=== PATIENT | male | born 1975 | race Caucasian/White ===

== ENCOUNTER → 2019-03-06 | Outpatient (CLI) | payer MEDICAID ==
--- NOTE | 2019-03-06 12:52 | REP ---
MRI lumbar spine: 03/06/2019. Indication: Cervical radiculopathy. Comparison: None. Technique: Multiplanar short and long TR sequences of the brain were obtained without IV Gadolinium. Findings: There is straightening of the cervical lordosis. No abnormal marrow signal is present. There is disc desiccation at C5/C6 and C6/C7. The craniocervical junction is unremarkable. No abnormal cord signal is present. C2/C3, C3/C4 and C4/C5: Unremarkable. C5/C6: There is a posterior central disc protrusion superimposed on a diffuse disc bulge with moderate compression of the spinal cord. There is no significant neural foraminal narrowing. C6/C7: Diffuse disc osteophyte complex is present with mild spinal canal and neural foraminal narrowing. C7/C1: Unremarkable. Impression: Posterior central disc herniation at C5/C6, slightly more prominent on the left as described. Electronically Signed by Juvenal Kothari DO 03/06/2019 12:43 P
== END ==
LOC: M PLARAD 08:13
PROVIDERS: ATTEND Orthopaedic Surgery
DX: M25.78 Osteophyte, vertebrae (principal); M50.222 Other cervical disc displacement at C5-C6 level; M47.892 Other spondylosis, cervical region

== ENCOUNTER → 2019-03-24 | Outpatient (CLI) | payer MEDICAID ==
--- NOTE | 2019-03-24 18:29 | REP ---
Scrotal sonography: History: Right testicular pain. The patient reports a lump at the right scrotum for years. Findings: High-resolution bilateral scrotal sonography is performed. No intratesticular mass lesion is seen on either side. Testicular Doppler flow is normal bilaterally. Resistive indices are measured by Doppler at 0.54 and 0.47 on the right and left respectively. Right testicular dimensions are 4.6 x 2.4 x 3.1 cm. Left testis measures 4.6 x 2.3 x 2.7 cm. There is a 1.0 cm cyst in the head of the epididymis corresponding to the palpable lump. No other finding. Impression: 1 cm right epididymal cyst. Otherwise negative scrotal sonography. Electronically Signed by Tirso Matthews MD 03/24/2019 06:56 P
== END ==
LOC: M RAD 14:23
PROVIDERS: ATTEND Nurse Practitioner Family
DX: N50.3 Cyst of epididymis (principal)

== ENCOUNTER → 2019-05-15 | Outpatient (REF) | payer OTHER, SELFPAY ==
[~2019-05-15] MED LIST: HYDR50TA70 PO; IBUP-1022 PO; PRAZ5CAP PO; TRAZ1TAB10 PO; VENL37.598 PO
[2019-05-15 13:38] LABS: BASO # 0.1 10^3/uL (0.0-0.2); BASO % 1.1 % (0.0-1.0); EOS # 0.2 10^3/uL (0.0-0.5); EOS % 2.2 % (0.0-3.0); HEMATOCRIT 50.3 % (42.0-52.0); HEMOGLOBIN 16.8 g/dl (13.5-17.5); LYMPH # 2.2 10^3/uL (1.5-5.0); LYMPH % 30.3 % (24.0-44.0); MEAN CORPUSCULAR HEMOGLOBIN 29.8 pg (27.0-33.0); MEAN CORPUSCULAR HGB CONC 33.4 g/dl (32.0-36.5); MEAN CORPUSCULAR VOLUME 89.2 fl (80.0-96.0); MONO # 0.5 10^3/uL (0.0-0.8); MONO % 6.9 % (0.0-5.0); NEUTROPHILS # 4.4 10^3/uL (1.5-8.5); NEUTROPHILS % 59.4 % (36.0-66.0); PLATELET COUNT, AUTOMATED 286 10^3/uL (150-450); RED BLOOD COUNT 5.64 10^6/uL (4.30-6.10); WHITE BLOOD COUNT 7.4 10^3/uL (4.0-10.0)
[2019-05-15 13:47] LABS: ALT/SGPT 22 U/L (12-78); BILIRUBIN,TOTAL 0.8 MG/DL (0.2-1.0); BLOOD UREA NITROGEN 14 MG/DL (7-18); CARBON DIOXIDE LEVEL 26 MEQ/L (21-32); CHLORIDE LEVEL 109 MEQ/L (98-107); CHOLESTEROL LEVEL 214 MG/DL (<200); CHOLESTEROL RISK RATIO 5.095 (<5); CREATININE FOR GFR 0.98 MG/DL (0.70-1.30); GLOMERULAR FILTRATION RATE > 60.0 (>60); GLUCOSE, FASTING 88 MG/DL (70-100); HDL CHOLESTEROL 42 MG/DL (>40); LDL CHOLESTEROL 154 MG/DL (<100); NON-HDL-C 172 MG/DL; SODIUM LEVEL 141 MEQ/L (136-145); THYROID STIMULATING HORMONE 0.971 uIU/ML (0.358-3.740); TOTAL PROTEIN 7.6 GM/DL (6.4-8.2); TRIGLYCERIDES LEVEL 88 MG/DL (<150)
[2019-05-15 13:48] LABS: FREE T4 1.12 NG/DL (0.76-1.46)
[2019-05-15 13:50] LABS: TOTAL 25(OH) VITAMIN D 16.7 NG/ML (30.0-100.0)
[2019-05-15 13:51] LABS: HEMOGLOBIN A1c 5.7 %
== END ==
LOC: M LAB REF 13:09
PROVIDERS: ATTEND Nurse Practitioner Family
DX: Z00.01 Encounter for general adult medical examination with abnormal findings (principal)

== ENCOUNTER → 2019-06-12 | Outpatient (CLI) | payer OTHER ==
[2019-06-12 15:00] LABS: BASO # 0.1 10^3/uL (0.0-0.2); BASO % 0.8 % (0.0-1.0); EOS # 0.2 10^3/uL (0.0-0.5); EOS % 1.5 % (0.0-3.0); HEMATOCRIT 47.9 % (42.0-52.0); HEMOGLOBIN 16.4 g/dl (13.5-17.5); LYMPH # 2.4 10^3/uL (1.5-5.0); LYMPH % 19.3 % (24.0-44.0); MEAN CORPUSCULAR HEMOGLOBIN 30.7 pg (27.0-33.0); MEAN CORPUSCULAR HGB CONC 34.2 g/dl (32.0-36.5); MEAN CORPUSCULAR VOLUME 89.7 fl (80.0-96.0); MONO # 0.9 10^3/uL (0.0-0.8); MONO % 7.3 % (0.0-5.0); NEUTROPHILS # 8.8 10^3/uL (1.5-8.5); NEUTROPHILS % 70.7 % (36.0-66.0); PLATELET COUNT, AUTOMATED 314 10^3/uL (150-450); RED BLOOD COUNT 5.34 10^6/uL (4.30-6.10); WHITE BLOOD COUNT 12.4 10^3/uL (4.0-10.0)
--- NOTE | 2019-06-12 15:13 | REP ---
PA and lateral chest: There are no comparisons. The lung hester are clear. The cardiac size is normal. The susy, mediastinum, and skeletal structures are unremarkable. Impression: Negative PA and lateral chest. Electronically Signed by Lance Horton MD 06/12/2019 03:05 P
[2019-06-12 15:14] LABS: INR 1.05; PROTHROMBIN TIME 13.4 SECONDS (11.8-14.0)
[2019-06-12 15:33] LABS: ALT/SGPT 20 U/L (12-78); BILIRUBIN,TOTAL 0.5 MG/DL (0.2-1.0); BLOOD UREA NITROGEN 11 MG/DL (7-18); CALCIUM LEVEL 9.3 MG/DL (8.5-10.1); CARBON DIOXIDE LEVEL 31 MEQ/L (21-32); CHLORIDE LEVEL 106 MEQ/L (98-107); CREATININE FOR GFR 0.87 MG/DL (0.70-1.30); GLOMERULAR FILTRATION RATE > 60.0 (>60); GLUCOSE, FASTING 104 MG/DL (70-100); POTASSIUM SERUM 3.9 MEQ/L (3.5-5.1); SODIUM LEVEL 141 MEQ/L (136-145); TOTAL PROTEIN 7.3 GM/DL (6.4-8.2)
== END ==
LOC: M LAB 13:49
PROVIDERS: ATTEND Nurse Practitioner Adult Health
DX: Z01.818 Encounter for other preprocedural examination (principal)

== ENCOUNTER 2019-06-17 09:50 | Inpatient (IN) | payer OTHER ==
--- NOTE | 2019-06-16 14:48 | HPE ---
DATE OF ADMISSION: 06/17/2019 HISTORY OF PRESENT ILLNESS: This is a pleasant 44-year-old male with continuing cervical stenosis, cervical myelopathy and left upper extremity radiculopathy. He has consented for anterior cervical decompression and fusion per Dr. Nacho Matt. Medical optimization was completed via video conference with nurse practitioner, Vero Cline. ALLERGIES: None known to drugs. MEDICATIONS: List includes: - hydroxyzine HCl 50 mg oral tablet - venlafaxine HCl ER 37.5 mg oral capsule extended release 24-hour - trazodone HCl 50 mg oral tablet - ibuprofen 600 mg oral tablet - prazosin HCl capsule MEDICAL PROBLEM: List includes: Cervical stenosis, cervical myelopathy and left upper extremity radiculopathy. Anxiety and depression. Essential hypertension. SOCIAL HISTORY: He quit smoking, but previous to that time was a heavy smoker. He denies ethanol intake or illicit drugs. SURGICAL HISTORY: Tonsillectomy. FAMILY HISTORY: Is positive for arthritis, hypertension, cancer, heart disease and diabetes. REVIEW OF SYSTEMS: Denies chest pain, shortness of breath, dyspnea on exertion, fever, chills, malaise, upper respiratory or urinary tract symptoms. His labs were reviewed. There was an elevation in his white count at 12.4. Neutrophil percentage was 70.7. Lymph percentage 19.3. [place] percentage 7.3. Neutrophil number 8.8. [place] number 0.9. Glucose was 104. Anion gap 4. Otherwise unremarkable. The patient notes that he had just been getting over a cold that was undocumented when his white count was elevated. His medical optimizing nurse practitioner makes note of this white count and recommends postoperative followup. The patient otherwise states feeling fine today. His chest x-ray was completed at [facility], service date 06/12/2019 showing negative PA and lateral views as read by Dr. Horton. PHYSICAL EXAMINATION: Height 66.5, weight 160.6 pounds, temperature 98.3, BP 145/63, respiration 15, pulse 63. This is a pleasant, well-developed, well-nourished male, in no acute distress. Alert and times three. Mood and affect are appropriate. He is ambulating without overt antalgic assistance or favoring, no ataxic gait. Normocephalic. Neck: Subtle stiffness otherwise supple. Negative jugular venous distention (JVD) or bruits. Chest: Rises symmetrically. Regular rate and rhythm. Lungs are clear to auscultation. Bowels sounds times four, soft, nontender. Skin is intact about the upper extremities and neck. IMPRESSION: 1. Cervical stenosis, cervical myelopathy and left upper extremity radiculopathy. 2. The patient consented for anterior cervical decompression and fusion. 3. Medical optimization was achieved per MAXINE Schulz. 4. On-call to the operating room (OR) 1 gram IV Kefzol in OR. 5. Sequential compression device (SCD) and thromboembolic deterrent stockings (TEDS) in OR. 6. The patient will arrive with [place] Cervical Collar. 7. Stat CBC preprocedure for Dr. Matt's viewing.
[~2019-06-17] VITALS: Ht 170.2 cm; Wt 68.5 kg
[~2019-06-17 09:50] MED LIST changes: +LIDOCAINE 1% MDV 20ML VIAL SQ PRN
[2019-06-17] MEDS ORDERED: THROMBIN SOLN 20,000 UNITS KIT As Ordered ONE (10:17)
[2019-06-17] MEDS ORDERED: BUPIVACAINE/EPIN 0.25% 30 ML VIAL As Ordered ONE (10:17)
[2019-06-17] MEDS ORDERED: LIDOCAINE W/EPINEPHRINE 1% 20ML VIAL As Ordered ONE (10:17)
[2019-06-17] MEDS ORDERED: BACITRACIN PWD 50,000 UNITS VIAL As Ordered ONE (10:18)
[2019-06-17] MEDS ORDERED: ceFAZolin 2 GM/D5W 50 ML IV BAG (J0690 PER 500MG) As Ordered ONE (10:36)
[2019-06-17] MEDS ORDERED: ceFAZolin SOD 2 GM in IV 1 EA IV ONE (10:45)
[2019-06-17] MEDS ORDERED: GABAPENTIN 300 MG CAP PO ONE (10:45)
[2019-06-17] MEDS ORDERED: PERCOCET 5MG/325MG TAB PO ONE (10:45)
[2019-06-17] MEDS ORDERED: fentaNYL 250 MCG/5 ML INJECTION (J3010) As Ordered ONE (10:54)
[2019-06-17] MEDS ORDERED: LIDOCAINE 2% INJ 100 MG/5 ML SDV (FOR ANES.) As Ordered ONE ×2 (10:54→15:56)
[2019-06-17] MEDS ORDERED: propofoL 200 MG/20 ML VIAL As Ordered ONE (10:54)
[2019-06-17] MEDS ORDERED: ONDANSETRON 4MG/2ML VIAL (J2405) As Ordered ONE (10:54)
[2019-06-17] MEDS ORDERED: ROCURONIUM BROMIDE 50 MG/5 ML VIAL As Ordered ONE ×3 (10:54→14:42)
[2019-06-17] MEDS ORDERED: dexameTHASONE 4 MG/ML 1ML VIAL (J1100) As Ordered ONE (10:54)
[2019-06-17] MEDS ORDERED: MIDAZOLAM INJ 2 MG/2 ML VIAL (J2250) As Ordered ONE (10:55)
[2019-06-17] MEDS ORDERED: LR 1,000 ML IV ONE (12:00)
[2019-06-17] MEDS ORDERED: ALBUTEROL 6.7GM INHALER **FOR ANES. CART/OMNICELL ONLY As Ordered ONE (12:41)
[2019-06-17] MEDS ORDERED: KETAMINE HCL 200 MG/20 ML VIAL As Ordered ONE (12:53)
[2019-06-17] MEDS ORDERED: HYDROmorphone HCL 2 MG/ML 1ML VIAL (J1170) As Ordered ONE (14:10)
[2019-06-17] MEDS ORDERED: ACETAMINOPHEN 1000MG 100ML IV BTL (OFIRMEV) (J0131 PER 10MG) As Ordered ONE (15:56)
[2019-06-17] MEDS ORDERED: SUGAMMADEX SODIUM 500 MG/5 ML VIAL (BRIDION) As Ordered ONE (16:03)
[2019-06-17] MEDS ORDERED: ePHEDrine SULFATE 25 MG/5 ML(5MG/ML) SYRINGE As Ordered ONE (16:25)
[2019-06-17] MEDS ORDERED: NALOXONE INJ 0.4 MG/1 ML VIAL (J2310) As Ordered ONE (16:45)
[2019-06-17] MEDS ORDERED: HYDROMORPHONE HCL 0.5 MG/ 0.5 ML SYRINGE (J1170 PER 1) IV PRN (17:00)
[2019-06-17] MEDS ORDERED: oxyCODONE 5MG TAB PO PRN (17:00)
[2019-06-17] MEDS ORDERED: PERCOCET 5MG/325MG TAB PO PRN (17:00)
[2019-06-17] MEDS ORDERED: ceFAZolin SOD 2 GM in IV 1 EA IV SCH (17:00)
[2019-06-17] MEDS ORDERED: LR 1,000 ML IV SCH (17:00)
[2019-06-17] MEDS ORDERED: fentaNYL 100 MCG/2 ML INJECTION (J3010) IV PRN (17:00)
[2019-06-17] MEDS ORDERED: PROMETHAZINE INJ 25 MG/ML VIAL (J2550) IV PRN (17:00)
[2019-06-17] MEDS ORDERED: ONDANSETRON 4MG/2ML VIAL (J2405) IV PRN (17:00)
[2019-06-17] MEDS ORDERED: ACETAMINOPHEN TAB 650MG DOSE (2X325MG) PO PRN (17:00)
[2019-06-17] MEDS: D5W/LR 1,000 ML IV SCH (17:00)
--- NOTE | 2019-06-17 17:14 | REP ---
Cervical spine: Limited study, two views. History: Intraprocedural imaging. Right cervical discectomy. Findings: There are two cross-table lateral portably obtained intraoperative radiographs. These are time stamped 01:57 p.m. and 03:51 p.m. The 01:57 p.m. radiograph demonstrates an orotracheal tube in place. An operative probe is seen at the anterior margin of the C5-6 disc level. The 03:51 p.m. film demonstrates ventral discectomy and fusion plating across the C5-6 and C6-7 disc levels, normal alignment. Electronically Signed by Tirso Matthews MD 06/17/2019 07:31 P
[2019-06-17 18:45] VITALS: BP 142/81
[2019-06-17 20:05] VITALS: BP 132/83
[2019-06-17] MEDS: PERCOCET 5MG/325MG TAB PO PRN (20:52)
[2019-06-17] MEDS: PRAZOSIN 1 MG CAP PO SCH (20:58)
[2019-06-17] MEDS: ceFAZolin SOD 2 GM in IV 1 EA IV SCH (20:59)
[2019-06-17] MEDS ORDERED: traZODone 50 MG TAB PO SCH (21:00)
[2019-06-17] MEDS: CHLORASEPTIC SPRAY MT PRN (21:03)
[2019-06-17 21:13] VITALS: BP 130/83
[2019-06-17 22:30] VITALS: BP 132/84
[2019-06-18] MEDS: PERCOCET 5MG/325MG TAB PO PRN ×3 (01:46→09:33)
[2019-06-18] MEDS: ceFAZolin SOD 2 GM in IV 1 EA IV SCH (01:50)
[2019-06-18 02:45] VITALS: BP 129/82
[2019-06-18] MEDS: D5W/LR 1,000 ML IV SCH (05:30)
[2019-06-18 05:48] VITALS: BP 132/81
[2019-06-18] MEDS: CHLORASEPTIC SPRAY MT PRN (05:50)
[2019-06-18] MEDS ORDERED: PERC5TAB12 PO (05:56)
[2019-06-18 09:00] VITALS: BP 132/81
[2019-06-18] MEDS: PRAZOSIN 1 MG CAP PO SCH (09:00)
[2019-06-18] MEDS ORDERED: VENLAFAXINE **XR** 37.5 MG CAPSULE PO SCH (09:00)
--- NOTE | 2019-06-18 13:59 | RO ---
DATE OF SURGERY: 06/17/2019 PREOPERATIVE DIAGNOSIS: Cervical spinal stenosis with myelopathy. POSTOPERATIVE DIAGNOSIS: Cervical spinal stenosis with myelopathy. PROCEDURE PERFORMED: Anterior cervical decompression and fusion at C5-6 and anterior cervical decompression and fusion at C6-7 using structural allograft for spine surgery and anterior cervical instrumentation. SURGEON: Nacho Matt MD COMPENSATION SUPERVISOR: DINA Queen ANESTHESIA: General. Estimated blood loss less than 40 mL, replaced with crystalloid. No complications. INDICATIONS: Clinical findings consistent with bilateral radicular complaints as well as cervical myelopathy, MRI evidence of spinal stenosis with cord signal change. Consent reviewed in detail including a ramona discussion of the pathology involved, procedure proposed, alternatives including doing nothing and risks including but not limited to pain, failure, infection, bleeding, blood loss, paralysis, need for more surgery, and other issues. The patient also understands that he needs remain nicotine free as has recently quit smoking and the nicotine use would increase the risk of failure of this surgery. The patient agrees to proceed with surgery. Components used included DePuy [place] plate 30 mm, a 5 x 7 graft at C6-C7 and a 4 x 6 graft at C5-6, 14 mm screws. OPERATIVE COURSE: Identified in holding area. Site side verified. Brought to the operating room. Once anesthesia was administered, head halter traction 7 pounds was applied. Shoulders were taped at the side. Bump between the shoulder placed. Once I and the trend investigator were comfortable with the patient's positioning he was then sterilely prepped and draped in the usual fashion for exposure of the cervical spine for anterior cervical decompression and fusion right-sided approach. Next, Mr. Morales stood on the left, I stood on the right. I utilized loupe magnification as well as a headlamp. The incision was outlined with a marking pen, infiltrated with 1% lidocaine with epinephrine. I made the incision using a #10 blade knife developed down through skin and subcuticular tissues to the platysma. Platysma was exposed, elevated and divided using bipolar cautery as well as tenotomy scissors. This allowed exposure to the sternocleidomastoid and the omohyoid was observed crossing inferiorly. Next, large branch of the external jugular was appreciated in the interval between the sternocleidomastoid and medial structures. This was elevated, exposed and ligated and then transected to allow exposure. Sternocleidomastoid was divided for the procedure. Using bipolar cautery and tenotomy scissors dissection continued. Carotid sheath was identified, protected laterally. Dissection continued medial to the carotid sheath down to the prevertebral fascia. Prevertebral fascia was then elevated off of the longus colli to the patient's right side and the disc osteophyte complexes were exposed. Bayonet spinal needle was placed and a cross-table lateral was taken to verify our levels. Next, once this was accomplished, I elevated the medial border of the longus colli using Bovie cautery bilaterally. We placed distraction pins across C5-6. Rodriguez-Tao's were utilized to remove anterior osteophyte complex. #11 blade was utilized to open annulus. Two turns were utilized to remove disc material. Curettes were utilized to clear cartilaginous endplate. We distracted using a distraction device and I utilized the oval bur to square the vertebral body endplates and uncinate processes and exposed the posterior longitudinal ligament (PLL). PLL was elevated using curved curettes and I removed PLL using curved curettes as well as the #1 and #2 Kerrison exposing the thecal sac. We did appreciate significant impingement on the thecal sac, especially at C5-6. Next, once the thecal sac was significantly decompressed at C5-6 and exposed we utilized rasps. We then sounded for a size 5 x 7 graft and installed the size 5 x 7 graft at C5-6. Next, the graft was tamped into place. Irrigation had been accomplished. Next, superior distraction pin removed. Pinhole plugged with wax. Oval bur was utilized to further contour the vertebral body anterior aspect for plating. Next, we subluxed retractors exposing C6-7. Distraction pin was placed in C7. We distracted across C6-7. We moved the Shadow-Line retractor into place. I removed the anterior osteophyte using Rodriguez-Tao as well as the oval bur. Further opened the annulus using #11 blade. Removed disc material with pituitaries, curettes and Kerrison. Next, once this was accomplished curettes were utilized to remove cartilaginous endplate. Oval bur was utilized to further square endplate and remove uncinate processes. Posterior longitudinal ligament elevated with curved curettes and removed using #1 and #2 Kerrison's. Thecal sac exposed. Rasps were utilized at C6-7. Sound was utilized predicting a size 4 x 6 graft. The 4 x 6 graft was obtained, soaked in bacitracin solution and implanted, tamped into place. Next, distraction pins were removed. Holes plugged with wax. Oval bur was utilized to further contour anterior vertebral body endplates. Next, we inspected for active bleeding. None observed and irrigation again accomplished. The size 30 mm plate was obtained, applied to the anterior vertebral column, fit appropriately. We drilled the plate and put the appropriate 14 mm screws at C5, C6, and C7. The plate was locked. Irrigation again accomplished. No active bleeding appreciated. Retractors were removed. Platysma was closed with interrupted stitch, deep dermis with interrupted stitch and Dermabond. Cross-table lateral was taken verifying appropriate plate and graft placement. Next, the patient was then extubated, moved to the recovery room in good condition. We placed a [place] collar. The patient is moving all four extremities. Mr. Morales participated in the entirety case in the capacity of first aid officer utilizing assisting with retractors, suction and positioning of the retractor devices.
--- NOTE | 2019-06-19 09:49 | DSES ---
DATE OF ADMISSION: 06/17/2019 DATE OF DISCHARGE: 06/18/2019 ATTENDING PHYSICIAN: Dr. Nacho Matt ADMISSION DIAGNOSIS: Cervical stenosis. OTHER DIAGNOSES: 1. Anxiety and depression. 2. Essential hypertension. DISCHARGE DIAGNOSIS: Cervical stenosis with myelopathy status post anterior cervical decompression and fusion at C5-6 and C6-7. OPERATION PERFORMED: Anterior cervical decompression and fusion at C5-6 and C6-7. HISTORY: This is a 44-year-old male patient with cervical stenosis and myelopathy with left upper extremity radiculopathy who failed to improve with conservative management and was admitted for elective cervical decompression and fusion at C5-6 and C6-7. HOSPITAL COURSE: The patient was admitted on the day of surgery and underwent the above procedure which was uneventful. He did well in the postoperative period and hospital course was without complications. His pain was controlled on the day of discharge. He will resume his preoperative medications and diet along with oral pain medications for pain control. He was given instructions to include, but not limited to wound monitoring and activity limitations. He will followup in our office in 10-14 days for surgical followup. Please refer to the medical record for further details.
== END 2019-06-18 09:30 | disposition home or self-care (01) | DRG 321 ==
LOC: M OR 10:01 → ENRESERVTM 18:10 → ENRESERVDT 18:10 → M MS5PR 18:30
PROVIDERS: ADMIT Orthopaedic Surgery; ATTEND Orthopaedic Surgery
PROC: 00NW0ZZ Release Cervical Spinal Cord, Open Approach (ICD-10-PCS; 2019-06-17)
PROC: 0RG20K0 Fusion of 2 or more Cervical Vertebral Joints with Nonautologous Tissue Substitute, Anterior Approach, Anterior Column, Open Approach (ICD-10-PCS; principal; 2019-06-17 11:30)
DX: M48.02 Spinal stenosis, cervical region (principal); I10 Essential (primary) hypertension; F41.9 Anxiety disorder, unspecified; F32.9 Major depressive disorder, single episode, unspecified; M50.022 Cervical disc disorder at C5-C6 level with myelopathy; M50.023 Cervical disc disorder at C6-C7 level with myelopathy; M50.122 Cervical disc disorder at C5-C6 level with radiculopathy; M50.123 Cervical disc disorder at C6-C7 level with radiculopathy; Z79.899 Other long term (current) drug therapy; Z87.891 Personal history of nicotine dependence

== ENCOUNTER 2020-05-05 17:40 | Emergency (ER) | payer OTHER ==
[~2020-05-05] VITALS: Ht 170.2 cm; Wt 65.9 kg
[~2020-05-05 17:40] MED LIST changes: -LIDOCAINE 1% MDV 20ML VIAL SQ PRN; +PERC5TAB12 PO
[2020-05-05] MEDS ORDERED: GABA-843 (17:53)
[2020-05-05] MEDS ORDERED: QUET200T2 (17:53)
[2020-05-05] MEDS ORDERED: NS 1,000 ML IV ONE (18:15)
[2020-05-05] MEDS ORDERED: ONDANSETRON 4MG/2ML VIAL IV ONE (18:30)
[2020-05-05 18:38] LABS: BASO # 0.1 10^3/uL (0.0-0.2); BASO % 0.7 % (0.0-1.0); EOS # 0.1 10^3/uL (0.0-0.5); EOS % 0.7 % (0.0-3.0); HEMATOCRIT 49.2 % (42.0-52.0); HEMOGLOBIN 17.4 g/dl (13.5-17.5); LYMPH # 2.5 10^3/uL (1.5-5.0); LYMPH % 22.9 % (24.0-44.0); MEAN CORPUSCULAR HEMOGLOBIN 29.4 pg (27.0-33.0); MEAN CORPUSCULAR HGB CONC 35.4 g/dl (32.0-36.5); MEAN CORPUSCULAR VOLUME 83.2 fl (80.0-96.0); MONO % 9.1 % (0.0-5.0); NEUTROPHILS # 7.1 10^3/uL (1.5-8.5); NEUTROPHILS % 66.1 % (36.0-66.0); PLATELET COUNT, AUTOMATED 326 10^3/uL (150-450); RED BLOOD COUNT 5.91 10^6/uL (4.30-6.10); WHITE BLOOD COUNT 10.7 10^3/uL (4.0-10.0)
[2020-05-05 19:08] LABS: ALBUMIN 4.1 GM/DL (3.2-5.2); ALT/SGPT 26 U/L (12-78); BILIRUBIN,DIRECT 0.3 MG/DL (0.0-0.2); BILIRUBIN,TOTAL 1.1 MG/DL (0.2-1.0); BLOOD UREA NITROGEN 22 MG/DL (7-18); CALCIUM LEVEL 9.6 MG/DL (8.5-10.1); CARBON DIOXIDE LEVEL 23 MEQ/L (21-32); CHLORIDE LEVEL 106 MEQ/L (98-107); CREATININE FOR GFR 0.96 MG/DL (0.70-1.30); GLOMERULAR FILTRATION RATE > 60.0 (>60); GLUCOSE, FASTING 94 MG/DL (70-100); LIPASE 69 U/L (73-393); POTASSIUM SERUM 3.6 MEQ/L (3.5-5.1); SODIUM LEVEL 138 MEQ/L (136-145)
[2020-05-05 19:47] VITALS: BP 130/76
[2020-05-05] MEDS ORDERED: ONDANSETRON 4 MG ORAL DISINTEGRATING TAB PO ONE (20:00)
== END 2020-05-05 20:21 | disposition home or self-care (01) ==
LOC: M ED 17:40
DX: E86.0 Dehydration (principal); A05.9 Bacterial foodborne intoxication, unspecified; Z79.899 Other long term (current) drug therapy; F17.210 Nicotine dependence, cigarettes, uncomplicated
CPT/HCPCS: 80048; 80076; 83690; 85025; 96374; 99284; J2405; Q0162

== ENCOUNTER 2020-05-16 13:45 | Emergency (ER) | payer OTHER ==
[~2020-05-16] VITALS: Ht 170.2 cm; Wt 68.2 kg
[~2020-05-16 13:45] MED LIST changes: +GABA-843; +QUET200T2
[2020-05-16] MEDS ORDERED: NS 1,000 ML IV ONE (15:00)
[2020-05-16] MEDS ORDERED: ONDANSETRON 4MG/2ML VIAL IV ONE (15:15)
[2020-05-16 15:38] LABS: BASO # 0.1 10^3/uL (0.0-0.2); BASO % 0.4 % (0.0-1.0); EOS % 0.1 % (0.0-3.0); HEMATOCRIT 44.7 % (42.0-52.0); HEMOGLOBIN 15.3 g/dl (13.5-17.5); LYMPH # 0.9 10^3/uL (1.5-5.0); LYMPH % 7.2 % (24.0-44.0); MEAN CORPUSCULAR HEMOGLOBIN 29.9 pg (27.0-33.0); MEAN CORPUSCULAR HGB CONC 34.2 g/dl (32.0-36.5); MEAN CORPUSCULAR VOLUME 87.5 fl (80.0-96.0); MONO # 0.4 10^3/uL (0.0-0.8); MONO % 2.8 % (0.0-5.0); NEUTROPHILS # 11.3 10^3/uL (1.5-8.5); PLATELET COUNT, AUTOMATED 305 10^3/uL (150-450); RED BLOOD COUNT 5.11 10^6/uL (4.30-6.10); WHITE BLOOD COUNT 12.7 10^3/uL (4.0-10.0)
[2020-05-16 15:58] LABS: ALBUMIN 3.9 GM/DL (3.2-5.2); ALT/SGPT 30 U/L (12-78); BILIRUBIN,DIRECT < 0.1 MG/DL (0.0-0.2); BILIRUBIN,TOTAL 0.3 MG/DL (0.2-1.0); BLOOD UREA NITROGEN 22 MG/DL (7-18); CALCIUM LEVEL 8.9 MG/DL (8.5-10.1); CARBON DIOXIDE LEVEL 24 MEQ/L (21-32); CHLORIDE LEVEL 106 MEQ/L (98-107); CREATININE FOR GFR 0.97 MG/DL (0.70-1.30); GLOMERULAR FILTRATION RATE > 60.0 (>60); GLUCOSE, FASTING 134 MG/DL (70-100); LIPASE 65 U/L (73-393); POTASSIUM SERUM 3.8 MEQ/L (3.5-5.1); SODIUM LEVEL 139 MEQ/L (136-145); TOTAL PROTEIN 7.2 GM/DL (6.4-8.2)
[2020-05-16] MEDS ORDERED: ISOVUE-370 76% 100ML VIAL As Ordered ONE (16:13)
[2020-05-16] MEDS ORDERED: NS 1,050 ML in IV 1 EA IV ONE (16:15)
[2020-05-16] MEDS ORDERED: KETOROLAC 30 MG/ML 1ML VIAL IV ONE (16:30)
[2020-05-16] MEDS ORDERED: CAPSAICIN 0.025% CR 60 GM TOP ONE (16:30)
[2020-05-16] MEDS ORDERED: PIPERACILLIN/TAZOBACTAM SOD 4.5 GM in D5W MINI-BAG PLUS 50 ML IV ONE (17:00)
--- NOTE | 2020-05-16 17:04 | REP ---
INDICATION: ruq, RLQ pain, n,v. COMPARISON: None. TECHNIQUE: Helical scanning was acquired and 4 mm axial images are re-formatted. Coronal and sagittal MPR images were generated and reviewed. The contrast enhancement dose is 100 mL of intravenous Isovue 370. FINDINGS: Preliminary digital senior marketing coordinator radiograph demonstrates an unremarkable bowel gas pattern. The lung bases are clear on axial CT images. There is an area of subpleural somewhat linear density in the left lateral pleural angle consistent with fibrosis. There is mild diffuse fatty infiltration of the liver. No focal hepatic lesion is seen. The spleen is normal in size homogeneous in texture. Normal adrenal glands are visible. No abnormality is noted in the pancreas. The gallbladder is unremarkable. Kidneys enhance symmetrically and are morphologically intact. Renal arteries are duplicated bilaterally. No other vascular abnormality. A normal appendix is visible in the right lower quadrant below the cecal tip. Urinary bladder prostate and seminal vesicles are unremarkable. No pelvic mass or adenopathy is seen. Small and large intestinal bowel loops are unremarkable. Bone window settings show no bony destructive lesion. No abdominal wall defect is appreciated. IMPRESSION: Mild diffuse fatty infiltration of the liver. Otherwise unremarkable CT study of the abdomen and pelvis. Normal appendix is seen. <Electronically signed by Livan Matthews > 05/16/20 [id number]
--- NOTE | 2020-05-16 17:19 | REPVR ---
PROCEDURE INFORMATION: Exam: US Abdomen, Limited; Right Upper Quadrant Exam date and time: 05/16/2020 5:02 PM Age: 45 years old Clinical indication: Abdominal pain; Acute; Additional info: Upper abd pain TECHNIQUE: Imaging protocol: US abdomen. Real time ultrasound with image documentation. Limited exam focused on the right upper quadrant. COMPARISON: CT ABD/PEL W/IV CONTRAST ONLY 05/16/2020 4:38 PM FINDINGS: Liver: Unremarkable. Gallbladder: No gallstones. No gallbladder wall thickening or pericholecystic fluid. Negative sonographic Lincoln's sign, as per the performing director of career services. Common bile duct: No stones. No ductal dilatation. Pancreas: Unremarkable as visualized. Right kidney: No mass. No definite stones. No hydronephrosis. IMPRESSION: No acute sonographic findings. Electronically signed by: Daniel Jones On 05/16/2020 17:19:44 PM
[2020-05-16 17:49] LABS: AMPHETAMINES LEVEL URINE NEGATIVE (NEGATIVE); BARBITURATES URINE NEGATIVE (NEGATIVE); BENZODIAZEPINES URINE NEGATIVE (NEGATIVE); CANNABINOIDS URINE NEGATIVE (NEGATIVE); COCAINE METABOLITE URINE NEGATIVE (NEGATIVE); METHADONE URINE NEGATIVE (NEGATIVE); OPIATES URINE NEGATIVE (NEGATIVE); PHENCYCLIDINE URINE NEGATIVE (NEGATIVE)
[2020-05-16 20:25] VITALS: BP 119/70
--- NOTE | 2020-05-17 06:22 | ECGEPIP ---
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
== END 2020-05-16 21:26 | disposition home or self-care (01) ==
LOC: M ED 13:45
DX: R11.2 Nausea with vomiting, unspecified (principal); I10 Essential (primary) hypertension; M48.061 Spinal stenosis, lumbar region without neurogenic claudication; F41.9 Anxiety disorder, unspecified; F32.9 Major depressive disorder, single episode, unspecified; E86.0 Dehydration; F17.200 Nicotine dependence, unspecified, uncomplicated; K76.0 Fatty (change of) liver, not elsewhere classified; Z79.899 Other long term (current) drug therapy
CPT/HCPCS: 74177; 76705; 80048; 80076; 80307; 81001; 83605; 83690; 85025; 87040; 93005; 96361; 96365; 96375; 99284; J1885; J2405; J2543; Q9967

== ENCOUNTER → 2020-09-06 | Outpatient (REF) | payer OTHER ==
[~2020-09-06] MED LIST changes: +GABA-282; -GABA-843
[2020-09-06 18:28] LABS: BASO # 0.1 10^3/uL (0.0-0.2); BASO % 1.3 % (0.0-1.0); EOS # 0.2 10^3/uL (0.0-0.5); EOS % 2.4 % (0.0-3.0); HEMATOCRIT 44.2 % (42.0-52.0); HEMOGLOBIN 14.9 g/dl (13.5-17.5); LYMPH # 2.1 10^3/uL (1.5-5.0); LYMPH % 25.1 % (24.0-44.0); MEAN CORPUSCULAR HEMOGLOBIN 30.1 pg (27.0-33.0); MEAN CORPUSCULAR HGB CONC 33.7 g/dl (32.0-36.5); MEAN CORPUSCULAR VOLUME 89.3 fl (80.0-96.0); MONO # 0.7 10^3/uL (0.0-0.8); MONO % 8.1 % (2.0-8.0); NEUTROPHILS # 5.1 10^3/uL (1.5-8.5); NEUTROPHILS % 62.7 % (36.0-66.0); PLATELET COUNT, AUTOMATED 317 10^3/uL (150-450); RED BLOOD COUNT 4.95 10^6/uL (4.30-6.10); WHITE BLOOD COUNT 8.2 10^3/uL (4.0-10.0)
[2020-09-06 18:45] LABS: ALBUMIN 3.9 GM/DL (3.2-5.2); ALT/SGPT 15 U/L (12-78); BILIRUBIN,TOTAL 0.2 MG/DL (0.2-1.0); BLOOD UREA NITROGEN 22 MG/DL (7-18); CALCIUM LEVEL 9.1 MG/DL (8.5-10.1); CARBON DIOXIDE LEVEL 28 MEQ/L (21-32); CHLORIDE LEVEL 104 MEQ/L (98-107); CHOLESTEROL LEVEL 195 MG/DL (<200); CREATININE FOR GFR 0.87 MG/DL (0.70-1.30); GLOMERULAR FILTRATION RATE > 60.0 (>60); GLUCOSE, FASTING 109 MG/DL (70-100); HDL CHOLESTEROL 50 MG/DL (>40); LDL CHOLESTEROL 108 MG/DL (<100); NON-HDL-C 145 MG/DL; SODIUM LEVEL 137 MEQ/L (136-145); TOTAL PROTEIN 7.7 GM/DL (6.4-8.2); TRIGLYCERIDES LEVEL 185 MG/DL (<150)
[2020-09-06 20:14] LABS: HEMOGLOBIN A1c 5.1 %
== END ==
LOC: M LAB REF 16:27
PROVIDERS: ATTEND Physician Assistant
DX: Z79.899 Other long term (current) drug therapy (principal)

== ENCOUNTER → 2020-09-20 | Outpatient (CLI) | payer OTHER ==
--- NOTE | 2020-09-21 10:59 | ECHO ---
DATE OF PROCEDURE: 09/20/2020 Age: 45 Gender: Male Height: 170 cm Weight: 69 kg REFERRING PROVIDER: DINA Aguirre. INDICATION: Heart murmur. MEASUREMENTS: IVS 0.9 cm LV 4.0 cm LVPW 0.8 cm LA 2.9 cm Aorta 3.4 cm Left atrium volume index 24 ml/m2 IVC 1.9 cm Mitral E wave velocity 91 A wave 50 E prime septal 10.3 E prime lateral 17.3 FINDINGS: This study is of good technical quality. The patient is in sinus rhythm. Left ventricle is normal size and has normal systolic function. Estimated LVEF 60 to 65%. Right ventricle is normal size and systolic function. Both atria appear normal. Aortic, mitral, and tricuspid valves appear normal. Pulmonic valve was not well visualized. No pericardial effusion is noted. Inferior vena cava is of normal size and appropriately collapses with inspiration indicative of normal central venous pressure. Aortic root, aortic arch, and visualized segment of abdominal aorta all appear normal. Doppler interrogation reveals competent aortic, mitral, and tricuspid valves. Mitral inflow pattern and tissue Doppler imaging of mitral annulus revealed normal diastolic function. CONCLUSIONS: 1. Study is of good technical quality. Underlying sinus rhythm. 2. Normal LV size with normal LV systolic and diastolic function. 3. No significant aortic, mitral, and tricuspid valvular disease. 4. Pulmonic valve was not well visualized. 5. Likely normal central venous pressure, unable to estimate pulmonary artery pressure. MTDD
== END ==
LOC: M CARPUL 11:28
PROVIDERS: ATTEND Physician Assistant
DX: R01.1 Cardiac murmur, unspecified (principal)

== ENCOUNTER → 2020-11-17 | Outpatient (CLI) | payer OTHER ==
[2020-11-17 11:20] LABS: BASO # 0.1 10^3/uL (0.0-0.2); BASO % 1.2 % (0.0-1.0); EOS # 0.1 10^3/uL (0.0-0.5); EOS % 1.7 % (0.0-3.0); HEMATOCRIT 45.1 % (42.0-52.0); HEMOGLOBIN 15.2 g/dl (13.5-17.5); LYMPH # 1.5 10^3/uL (1.5-5.0); LYMPH % 26.6 % (24.0-44.0); MEAN CORPUSCULAR HEMOGLOBIN 29.7 pg (27.0-33.0); MEAN CORPUSCULAR HGB CONC 33.7 g/dl (32.0-36.5); MEAN CORPUSCULAR VOLUME 88.3 fl (80.0-96.0); MONO # 0.4 10^3/uL (0.0-0.8); MONO % 6.8 % (2.0-8.0); NEUTROPHILS # 3.6 10^3/uL (1.5-8.5); NEUTROPHILS % 63.5 % (36.0-66.0); PLATELET COUNT, AUTOMATED 246 10^3/uL (150-450); RED BLOOD COUNT 5.11 10^6/uL (4.30-6.10); WHITE BLOOD COUNT 5.7 10^3/uL (4.0-10.0)
[2020-11-17 11:45] LABS: ERYTHROCYTE SEDIMENTATION RATE 4 mm/hr (0-15)
[2020-11-17 11:53] LABS: HEMOGLOBIN A1c 5.5 %
[2020-11-17 12:06] LABS: ALBUMIN 3.7 GM/DL (3.2-5.2); ALT/SGPT 24 U/L (12-78); BILIRUBIN,TOTAL 0.1 MG/DL (0.2-1.0); BLOOD UREA NITROGEN 19 MG/DL (7-18); CALCIUM LEVEL 8.7 MG/DL (8.5-10.1); CARBON DIOXIDE LEVEL 31 MEQ/L (21-32); CHLORIDE LEVEL 107 MEQ/L (98-107); CREATININE FOR GFR 0.74 MG/DL (0.70-1.30); GLOMERULAR FILTRATION RATE > 60.0 (>60); GLUCOSE, FASTING 93 MG/DL (70-100); POTASSIUM SERUM 4.3 MEQ/L (3.5-5.1); RHEUMATOID FACTOR QUANT < 10.0 IU/ML (<15.0); SODIUM LEVEL 140 MEQ/L (136-145); TOTAL PROTEIN 7.3 GM/DL (6.4-8.2)
[2020-11-17 12:50] LABS: VITAMIN B12 LEVEL 295 PG/ML
[2020-11-17 12:54] LABS: FOLATE > 24.0 NG/ML
[2020-11-18 11:12] LABS: ALBUMIN 4.26 GM/DL (3.29-5.55); ALBUMIN % 58.4 % (55.8-66.1); ALPHA-1-GLOBULIN % 3.5 % (2.9-4.9); ALPHA-1-GLOBULINS 0.26 GM/DL (0.17-0.41); ALPHA-2-GLOBULINS 0.63 GM/DL (0.42-0.99); ALPHA-2-GLOBULINS % 8.6 % (7.1-11.8); BETA-1-GLOBULINS 0.41 GM/DL (0.28-0.60); BETA-1-GLOBULINS % 5.6 % (4.7-7.2); BETA-2-GLOBULINS 0.45 GM/DL (0.19-0.55); BETA-2-GLOBULINS % 6.2 % (3.2-6.5); GAMMA GLOBULIN % 17.7 % (11.1-18.8); GAMMA GLOBULINS 1.29 GM/DL (0.65-1.58)
[2020-11-21 13:14] LABS: ANTI DS-DNA AB Negative (Negative)
[2020-11-22 16:08] LABS: ANTINUCLEAR ANTIBODIES DIRECT Negative (Negative); SJOGREN'S ANTI SS-A <0.2 AI (0.0-0.9); SJOGREN'S ANTI SS-B <0.2 AI (0.0-0.9); VITAMIN B1 LEVEL WHOLE BLOOD 158.8 nmol/L (66.5-200.0); VITAMIN B6,PYRIDOXAL PHOSPHATE 23.3 ug/L (5.3-46.7); VITAMIN E(ALPHA TOCOPHEROL) 10.3 mg/L (7.0-25.1)
== END ==
LOC: M LAB 10:15
PROVIDERS: ATTEND Psychiatry & Neurology Neurology
DX: G31.84 Mild cognitive impairment of uncertain or unknown etiology (principal); Z79.899 Other long term (current) drug therapy

== ENCOUNTER → 2021-03-06 | Outpatient (CLI) | payer OTHER ==
[2021-03-06 16:34] LABS: BASO # 0.1 10^3/uL (0.0-0.2); BASO % 1.7 % (0.0-1.0); EOS # 0.1 10^3/uL (0.0-0.5); EOS % 1.4 % (0.0-3.0); HEMATOCRIT 42.4 % (42.0-52.0); HEMOGLOBIN 14.2 g/dl (13.5-17.5); LYMPH # 1.6 10^3/uL (1.5-5.0); LYMPH % 26.5 % (24.0-44.0); MEAN CORPUSCULAR HEMOGLOBIN 30.3 pg (27.0-33.0); MEAN CORPUSCULAR HGB CONC 33.5 g/dl (32.0-36.5); MEAN CORPUSCULAR VOLUME 90.6 fl (80.0-96.0); MONO # 0.5 10^3/uL (0.0-0.8); MONO % 9.2 % (2.0-8.0); NEUTROPHILS # 3.6 10^3/uL (1.5-8.5); PLATELET COUNT, AUTOMATED 275 10^3/uL (150-450); RED BLOOD COUNT 4.68 10^6/uL (4.30-6.10); WHITE BLOOD COUNT 5.9 10^3/uL (4.0-10.0)
--- NOTE | 2021-03-06 16:34 | REP ---
INDICATION: WHEEZING - HAS LABS FIRST. COMPARISON: PA and lateral chest, 06/12/2019. TECHNIQUE: Upright PA and lateral chest images were obtained. FINDINGS: The lungs are clear. The heart borders mediastinum and pulmonary vascular pattern normal. The upper abdominal bowel gas pattern is normal. Status post anterior interbody fusion, C5-C7. IMPRESSION: No evidence of acute cardiopulmonary pathology. Other findings as noted. <Electronically signed by Jonah Hui > 03/06/21 [id number]
[2021-03-06 18:07] LABS: ALBUMIN 3.6 GM/DL (3.2-5.2); ALT/SGPT 24 U/L (12-78); BILIRUBIN,TOTAL 0.2 MG/DL (0.2-1.0); BLOOD UREA NITROGEN 15 MG/DL (7-18); CALCIUM LEVEL 9.6 MG/DL (8.5-10.1); CARBON DIOXIDE LEVEL 32 MEQ/L (21-32); CHLORIDE LEVEL 107 MEQ/L (98-107); CHOLESTEROL LEVEL 169 MG/DL (<200); CHOLESTEROL RISK RATIO 2.816 (<5); CREATININE FOR GFR 0.79 MG/DL (0.70-1.30); GLOMERULAR FILTRATION RATE > 60.0 (>60); GLUCOSE, FASTING 86 MG/DL (70-100); HDL CHOLESTEROL 60 MG/DL (>40); LDL CHOLESTEROL 97 MG/DL (<100); NON-HDL-C 109 MG/DL; POTASSIUM SERUM 5.3 MEQ/L (3.5-5.1); SODIUM LEVEL 142 MEQ/L (136-145); TOTAL PROTEIN 7.3 GM/DL (6.4-8.2); TRIGLYCERIDES LEVEL 59 MG/DL (<150)
[2021-03-06 20:59] LABS: HEMOGLOBIN A1c 5.5 %
== END ==
LOC: M RAD 15:02
PROVIDERS: ATTEND Physician Assistant
DX: R06.2 Wheezing (principal); Z98.890 Other specified postprocedural states

== ENCOUNTER → 2021-08-10 | Outpatient (CLI) | payer OTHER ==
[2021-08-10 16:09] LABS: BASO # 0.1 10^3/uL (0.0-0.2); BASO % 1.1 % (0.0-1.0); EOS # 0.1 10^3/uL (0.0-0.5); HEMATOCRIT 39.6 % (42.0-52.0); HEMOGLOBIN 13.6 g/dl (13.5-17.5); LYMPH % 22.2 % (24.0-44.0); MEAN CORPUSCULAR HEMOGLOBIN 30.9 pg (27.0-33.0); MEAN CORPUSCULAR HGB CONC 34.3 g/dl (32.0-36.5); MONO # 0.7 10^3/uL (0.0-0.8); MONO % 7.6 % (2.0-8.0); NEUTROPHILS % 67.9 % (36.0-66.0); PLATELET COUNT, AUTOMATED 276 10^3/uL (150-450); WHITE BLOOD COUNT 8.8 10^3/uL (4.0-10.0)
[2021-08-10 16:53] LABS: ALBUMIN 3.7 GM/DL (3.2-5.2); ALT/SGPT 30 U/L (12-78); BILIRUBIN,TOTAL 0.3 MG/DL (0.2-1.0); BLOOD UREA NITROGEN 26 MG/DL (7-18); CALCIUM LEVEL 8.8 MG/DL (8.5-10.1); CARBON DIOXIDE LEVEL 27 MEQ/L (21-32); CHLORIDE LEVEL 108 MEQ/L (98-107); CREATININE FOR GFR 0.99 MG/DL (0.70-1.30); GLOMERULAR FILTRATION RATE > 60.0 (>60); GLUCOSE, FASTING 101 MG/DL (70-100); POTASSIUM SERUM 4.1 MEQ/L (3.5-5.1); SODIUM LEVEL 140 MEQ/L (136-145)
== END ==
LOC: M WUC 13:39
PROVIDERS: ATTEND Nurse Practitioner Family
DX: F43.10 Post-traumatic stress disorder, unspecified (principal)

== ENCOUNTER → 2021-08-10 | Outpatient (CLI) | payer OTHER ==
[2021-08-10 16:28] LABS: PERCENT SATURATION 20.5 % (19.7-50.0)
[2021-08-10 17:09] LABS: FOLATE 12.2 NG/ML (>5.4)
== END ==
LOC: M WUC 13:33
PROVIDERS: ATTEND Psychiatry & Neurology Neurology
DX: R41.3 Other amnesia (principal)